=== PATIENT | male | born 1935 | race Caucasian/White ===

== ENCOUNTER 2024-09-18 15:10 | Inpatient (IN) | payer MEDICARE, OTHER, SELFPAY ==
[2024-09-18] VITALS (10 sets, daily range): BP systolic 100–142; BP diastolic 55–92; BMI 31.3; BMI 31.7
--- NOTE | 2024-09-18 12:51 | ED.GENMED ---
History of Present Illness
General
Chief Complaint: Chest Pain
Source: patient
Exam Limitations: none
Time Seen by Provider: 09/18/24 12:49
Nursing documentation reviewed up to this point in time: agreed with
History of Present Illness
History of Present Illness:
89-year-old male presents to the emergency department complaining of chest pain and shortness of breath for a week.
Past History
Past History
ED Past Medical History: CAD, HTN and Valvular disease
ED Past Surgical History: Cardiac (Prior to catheterization, coronary bypass, valve repair) and Other (Inguinal hernia)
Social History
Tobacco: Non-smoker
Alcohol: None
Drug: None
Personal:
Living: with family
Review of Systems
Review of Systems
Allergies reviewed?: Yes
All Other Systems: Not applicable
Constitutional: Reports no symptoms
EENT: Reports no symptoms
Respiratory: Reports trouble breathing
Cardiac: Reports chest pain
ABD/GI: Reports no symptoms
: Reports no symptoms
Musculoskeletal: Reports no symptoms
Skin: Reports no symptoms
Neurological: Reports no symptoms
Endocrine: Reports no symptoms
Hematologic/Lymphatic: Reports no symptoms
Psychiatric: Reports no symptoms
Phy Exam
Physical Exam
Physical Exam:
Physical Exam
General: no apparent distress, not acutely ill
Neck: supple. no meningeal signs. normal posterior pharynx
Heart: s1/s2 regular rate and rhythm, no murmur. equal radial
pulses. midline sternotomy scar
HEENT: Pupils equal round reactive to light, EOMI
Lungs: no acute respiratory distress. clear bilaterally
Abdomen: normal bowel sounds. not tender. no CVAT
Neuro: alert and oriented. no focal neurological deficits cranial nerves II through XII intact
Skin: no rash
Psychiatric: well kept. interactive and cooperative
Extremities: Bilateral tibial edema. no calf tenderness. negative homans. good distal pulses
Scores
Heart Failure Risk
Heart Failure Risk Score: Yes
History of Stroke or TIA: No
History of intubation for respiratory distress: No
Heart rate on ED arrival >/= 110: No
SaO2 <90% on arrival on room air: No
HR >/=110 during 3min walk test (or too ill to perform test): No
ECG has acute ischemic changes: No
Urea >/=12mmol/L (BUN 33.6mg/dL): No
Serum CO2>/=35mmol/L: No
Troponin I or T elevated to AL Level (0.4mg/dL): Yes
NT-proBNP >/=5,000ng/L (5,000pg/ml): Yes
HF Risk Score: 3
Admission Status: HIGH RISK 15.9% Consider SNF treatment or admission to hospital
Heart Score for Chest Pain Patients
STEMI patient?: No
History: Moderately Suspicious
ECG: Nonspecific Repolarization
Age: >/= 65 years
Risk Factors: >/= 3 Risk Factors or History of CAD
Troponin: >/= 3 x Normal Limit
Heart Score for Chest Pain Patients: 8
Heart Score Risk: 72.7 % MACE over next 6 weeks
Course
Orders/Labs/Results
Orders:
Orders
09/18/24 12:25
Electrocardiogram (*1) Urgent
Reason for Study: Chest Pain
EKG- Treatment ONCE
09/18/24 13:03
CR Chest - 2 Views Urgent
Comment:
Reason For Exam: shortness
09/18/24 13:05
Basic Metabolic Panel Urgent
Complete Blood Count/With Diff Urgent
NT-proBNP Urgent
Troponin I Urgent
09/18/24 13:30
CMP [Comprehensive Metabolic Panel] Urgent
09/18/24 13:57
Aspirin Chewable [Low Strength Aspirin] 324 mg PO NOW STA
Furosemide [Lasix] 40 mg IV ONCE ONE
09/18/24 13:58
Heparin 4,000 units IV NOW STA
09/18/24 13:[address] Non Medication Order As Directed
Physician Order: PTT 6 hours after initial start of Heparin infusion
09/18/24 14:00
Heparin 42668 Units/250 ml 25,000 units in 250 ml IV PER PROTOCOL
Weight to be used for heparin protocol in kilograms (kg):: 87.997
Protocol:: Cardiac Tx/Acute Coronary
PTT Goal Range to be used:: PTT 73 to 111 seconds
Order type:: Initial
INITIAL Infusion Dose (UNITS/KG/hr) & then follow protocol:: 12 units/kg/hr
Infusion Dose in UNITS/hr & then follow protocol (UNITS/hr):: 1,000
INFUSION RATE in mL/hr & then follow protocol (mL/hr):: 10
PTT less than or equal to 64 seconds:: Increase rate by 200 units/hr (+ 2 mL/hr)
PTT 64.1 to 72.9 seconds:: Increase rate by 100 units/hr (+ 1 mL/hr)
PTT 73 to 111 seconds:: Target Range. No change in rate.
PTT 111.1 to 130.9 seconds:: Decrease rate by 100 units/hr (- 1 mL/hr)
PTT 131 to 199.9 seconds:: HOLD for 1 hr. Then decrease rate by 200 units/hr (- 2 mL/hr)
PTT greater than or equal to 200 seconds:: HOLD for 2 hrs & Notify Provider. Then decrease by 200 units/hr (-
2 mL/hr)
Lab follow-up:: Each change, PTT q6h until 2 consecutive are therapeutic. Then PTT
daily.
09/18/24 14:03
PT/INR [Prothrombin Time] Urgent
PTT Urgent
09/18/24 14:49
Admit/Transfer Patient As Directed
Co-Sign Provider:
Level of Care: Inpatient admission
Assign to:: IVU
Physician / Group: Ananth Acevedo
Diagnosis: NSTEMI, HFpEF
Reason for Hospitalization: NSTEMI, HFpEF
Expected length of stay greater than two midnights?: Yes
ELOS- Estimated Length of Stay in days: 3
I certify the patient meets the requirements for IP care: Yes
09/18/24 14:50
PRN Pain Medication Management As Directed
May give lesser potent ordered pain med per pt: Yes
preference::
Protocol:: Medication orders for pain may be administered in a
manner that supports deferring to patient preference
when the pt is:
- Requesting an ordered lesser potent pain medication.
Least to most potent pain medications are defined
as: acetaminophen < NSAID < tramadol < opioids
(morphine, oxycodone, hydromorphone).
- Requesting a lesser dose of the same medication IF
ORDERED.
- Requesting a less intrusive route of administration
if both routes are prescribed by the provider (PO <
IV).
09/18/24 14:51
Code Status As Directed
Resuscitation Status: Full Code
09/18/24 20:30
PTT Urgent
Abnormal Lab Results
09/18/24 09/18/24
13:05 13:30
RBC 4.03 L 10^6/uL
(4.70-6.10)
Hgb 12.6 L g/dL
(13.0-18.0)
Hct 36.2 L %
(39.0-52.0)
MCH 31.3 H pg
(27.0-31.0)
Absolute Lymphs (auto) 0.4 L 10^3/uL
(1.2-3.4)
Absolute Monos (auto) 0.9 H 10^3/uL
(0.1-0.6)
Neutrophils % 78.5 H %
(42.2-75.2)
Lymphocytes % 6.0 L %
(20.5-51.1)
Monocytes % 13.7 H %
(1.7-9.3)
Sodium 132 L mmol/L 132 L mmol/L
(135-145) (135-145)
BUN 30 H mg/dl 29 H mg/dl
(9-20) (9-20)
Glucose 142 H mg/dl 133 H mg/dl
(70-99) (70-99)
Total Bilirubin 1.6 H mg/dl
(0.2-1.3)
AST 114 H U/L
(17-59)
Troponin I 8.570 H* ng/ml
Total Protein 6.0 L g/dl
(6.3-8.2)
09/18/24 13:05
09/18/24 13:30
Vital Signs
Initial and Last Documented VS:
Initial Vital Signs
Temp Pulse Resp BP Pulse Ox
97.4 F 96 16 122/60 97
09/18/24 12:33 09/18/24 12:33 09/18/24 12:33 09/18/24 12:33 09/18/24 12:33
Last Documented Vital Signs
Temp Pulse Resp BP Pulse Ox
97.8 F 88 20 121/55 94
09/18/24 13:07 09/18/24 15:00 09/18/24 15:00 09/18/24 15:00 09/18/24 15:00
MDM/Problems Addressed
Differential Diagnosis Includes:
ACS, PE, CHF
MDM/Problems Addressed:
89-year-old male with CHF and NSTEMI. Admit to hospitalist. IV heparin and IV Lasix and aspirin given. Discussed with Dr. Chang who will see patient.
Chronic conditions affecting care: CAD and Cardiomyopathy
Acute Exacerbation and/or Progression of Chronic Illness: CAD and Cardiomyopathy
*Radiology
Radiology exam reviewed: preliminary read by ED provider (Chest x-ray shows cardiomegaly, pulmonary edema)
*Pulse Oximetry
Patient hypoxic: no
*EKG
Interpreted by ED Provider?: Yes
EKG Intrepretation Date: 09/18/24
EKG Intrepretation Time: 12:32
Interpretation: abnormal
Comparison EKG: changes noted
Heart Rate: 95
Rate: normal
Rhythm: sinus
[place]: left axis deviation
Interval: first degree heart block
QRS Pattern: normal QRS
Ischemia: no ischemia
*Flatbed Owner Operator Interpretation
Rate: normal
Interpretation: normal
Heart Rate: 94
Rhythm: sinus
*Critical Care Note
Total Time (30-74mins, 75-104mins- exclusive of procedures): 35
comment:
Critical care statement: A total of 35 minutes of critical care time was provided for this patient. This includes management of unstable vital signs, evaluation of the patient at bedside, reviewing the patient's pertinent medical records, discussion
with consultants, review of old EKGs and review of pertinent medical records. This time with separate from time utilized to perform the aforementioned documented procedures
Patient Management
Social determinants of health affecting care: Living situation
Discussion with other providers: Hospitalist and Machining Supervisor (Cardiology)
Escalation/DeEscalation of care consider admission/obs:
Admit indicated
ED Attending Note
-
Portions of this chart may have been created with voice recognition software.� Occasional wrong word or��sound alike� substitutions may have occurred due to the inherent limitations of voice recognition software.
Discharge Plan
Departure
Patient Disposition: Admit
Date of Disposition: 09/18/24
Time of Disposition: 13:55
Admit to: IVU
Presentation/result/management discussed w/ accepting MD/DO: Hospitalist
Patient with high blood pressure during this ER visit?: No
Condition: Fair
Discharge Problem:
Acute non-ST elevation myocardial infarction (NSTEMI), Acute exacerbation of CHF (congestive heart failure)
Interventions
Interventions:
*Risk Screen - Suicide Last Done: 09/18/24 13:07
*General Assessment Last Done: 09/18/24 13:07
*Neglect/Abuse Screening Last Done: 09/18/24 13:07
*ED- Fall Risk Assessment Last Done: 09/18/24 13:07
*ED COVID-19 Vaccine History Last Done: 09/18/24 13:07
ED- Cardiac Assessment Last Done: 09/18/24 13:07
[2024-09-18 13:14] LABS: % Basophils 0.5 % (0-2); % Eosinophils 0.8 % (0-6); % Immature Granulocytes 0.5 % (0-0.5); % Monocytes 13.7 % (1.7-9.3); % Neutrophils 78.5 % (42.2-75.2); Absolute Eosinophils 0.1 10^3/uL (0-0.7); Absolute Lymphocytes 0.4 10^3/uL (1.2-3.4); Absolute Monocytes 0.9 10^3/uL (0.1-0.6); Hematocrit 36.2 % (39.0-52.0); Hemoglobin 12.6 g/dL (13.0-18.0); Mean Corp Hgb Conc. 34.8 g/dL (33.0-37.0); Mean Corpuscular Hgb 31.3 pg (27.0-31.0); Mean Corpuscular Volume 89.8 fL (80.0-94.0); Mean Platelet Volume 9.7 fL (7.4-10.4); Nucleated Red Blood Cells % 0 % (-); Platelet Count 168 10^3/uL (130-400); Red Blood Cell Count 4.03 10^6/uL (4.70-6.10); Red Cell Dist. Width 13.5 % (11.5-14.5); White Blood Cell Count 6.4 10^3/uL (4.8-10.8)
[2024-09-18 13:31] LABS: Blood Urea Nitrogen 30 mg/dl (9-20); Calcium 9.8 mg/dl (8.4-10.2); Carbon Dioxide 29 mmol/L (22-30); Chloride 99 mmol/L (98-107); Estimated Creatinine Clearance 47 ml/min; Glucose 142 mg/dl (70-99); Sodium 132 mmol/L (135-145); eGFR > 60.00
[2024-09-18 13:42] LABS: NT-proBNP 19400 pg/ml
[2024-09-18 13:51] LABS: ALT (SGPT) 27 U/L (0-50); AST (SGOT) 114 U/L (17-59); Albumin 3.5 g/dl (3.5-5.0); Alkaline Phosphatase 54 U/L (38-126); Blood Urea Nitrogen 29 mg/dl (9-20); Calcium 9.6 mg/dl (8.4-10.2); Carbon Dioxide 30 mmol/L (22-30); Chloride 99 mmol/L (98-107); Estimated Creatinine Clearance 47 ml/min; Glucose 133 mg/dl (70-99); Sodium 132 mmol/L (135-145); Total Bilirubin 1.6 mg/dl (0.2-1.3); eGFR > 60.00
--- NOTE | 2024-09-18 14:12 | HPS.HSE ---
Family Physician
-
Family Physician: Mika Mcconnell MD
Chief Complaint
-
chest pain
History of Present Illness
Patient is a 89-year-old male with past medical history significant for essential hypertension, dyslipidemia, non-rheumatic mitral valve stenosis, CAD s/p CABG and HFpEF who presented to [facility] ED for evaluation of chest pain associated
with shortness of breath for the past week. Patient reports that chest pain radiated a little to left arm. Both shortness of breath and chest pain were present at rest and exertional. He rates his pain on a scale 1 to 10 at a 3 currently and no
worse than a 5 out of 10. Patient denies any recent illness, dizziness, fever, chills, cough, nausea, vomiting, constipation, diarrhea or urinary symptoms. Patient does report a recent hospitalization at [facility] for CHF exacerbation and
Lasix initiated with a 20 pound weight loss.
Medical History
Past Medical History
Past Medical History: Reports Other
Additional Past Medical History:
essential hypertension
dyslipidemia
non-rheumatic mitral valve stenosis
CAD
HFpEF
hypothyroidism
depression/anxiety
Past Surgical History: Reports Other
Additional Past Surgical History:
CABG
Cardiac cath
aortic valve replacement
Prostatectomy-Green light(2008)
Mohs Surgery for Skin Cancer(2009)
Social History
Tobacco: Non-smoker
Alcohol: Occasional
Drug: None
Personal:
Living: With Family (shelter community in independent living )
Employment: Retired
Family History
Family History: Not pertinent
Allergies / Home Medications
Allergies reflects when Allergies were last updated in [facility].
Home Medications with original date entered in [facility]
Allergy/Medication List:
Allergies
Allergy/AdvReac Type Severity Reaction Status Date / Time
No Known Allergies Allergy Unverified 11/01/08 13:28
Home Medications
alprazolam 0.5 mg tablet (Xanax) 0.5 mg PO HS 09/18/24
carvedilol 6.25 mg tablet 6.25 mg PO BID 09/18/24
dapagliflozin propanediol 10 mg tablet (Farxiga) 10 mg PO DAILY 09/18/24
docusate sodium 100 mg capsule (Colace) 100 mg PO BID 09/18/24
furosemide 40 mg tablet (Lasix) 40 mg PO DAILY 09/18/24
levothyroxine 88 mcg tablet 88 mcg PO DAILY 09/18/24
sacubitril 24 mg-valsartan 26 mg tablet (Entresto) 1 tab PO BID 09/18/24
sennosides 8.6 mg tablet (Senokot) 8.6 mg PO DAILY 09/18/24
Review of Systems
-
History Source: Patient
Respiratory: Reports Trouble Breathing (shortness of breath at rest and exertional )
Cardiac: Reports Chest Pain (at rest and exertional )
Physical Exam
Vital Signs
Vital Signs
Temp Pulse Resp BP Pulse Ox
97.8 F 84 16 119/59 97
09/18/24 13:07 09/18/24 13:07 09/18/24 13:07 09/18/24 13:07 09/18/24 13:07
Physical Exam
General: Well Developed, Well Nourished, No Apparent Distress, Conversant and Obese
HEENT: NormoCephalic, Moist mucous membranes, Atraumatic, [place] Conjunctivae, Nose Appears Normal and Ears Appear Normal
Respiratory: Clear
Cardiac: S1/S2 and Regular Rhythm; No Murmur
GI: Soft, Non Tender, Non Distended and Normal Bowel Sounds; No Organomegaly
Rectal: Deferred by Provider
Genito-urinary: Deferred by me
Musculoskeletal: No Clubbing, No Cyanosis, Edema, Left Lower Extremity and Edema, Right Lower Extremity
Skin: No Rash
Neuro: Awake, Alert, AO x 3 and Nonfocal/grossly intact
Psych: Calm and Intact Judgment/Insight
Laboratory Results
-
09/18/24 13:05
09/18/24 13:30
Laboratory Results
Total Bilirubin 1.6 mg/dl (0.2-1.3) H 09/18/24 13:30
AST 114 U/L (17-59) H 09/18/24 13:30
ALT 27 U/L (0-50) 09/18/24 13:30
Alkaline Phosphatase 54 U/L (38-126) 09/18/24 13:30
Troponin I 8.570 ng/ml H* 09/18/24 13:05
Data Reviewed
-
Medical Tests (Nuc Med, Echo, EKG etc): Report Reviewed by me (EKG: SINUS RHYTHM WITH 1ST DEGREE A-V BLOCK LEFT AXIS DEVIATION NON-SPECIFIC INTRA-VENTRICULAR CONDUCTION DELAY MINIMAL VOLTAGE CRITERIA FOR LVH, MAY BE NORMAL VARIANT ( [place]on product
) MARKED ST ABNORMALITY, POSSIBLE LATERAL SUBENDOCARDIAL INJURY)
Lab Data: Labs Reviewed by me (Trop 8.570, pro-BNP 55684)
Impression/Plan
-
IMPRESSION/PLAN:
#NSTEMI
Trop 8.570
EKG: SINUS RHYTHM WITH 1ST DEGREE A-V BLOCK
LEFT AXIS DEVIATION
NON-SPECIFIC INTRA-VENTRICULAR CONDUCTION DELAY
MINIMAL VOLTAGE CRITERIA FOR LVH, MAY BE NORMAL VARIANT ( [place] product )
MARKED ST ABNORMALITY, POSSIBLE LATERAL SUBENDOCARDIAL INJURY
- Admit to IVU
- Cardiology consult CBC
- Heparin gtt
- trend troponin to peak
#essential hypertension
- continue carvedilol and Entresto
#HFpEF
recent CHF exacerbation @ [facility] discharged 2 weeks ago
pro-BNP [id number]
ECHO (06/05/2023): Normal biventricular size and systolic function without regional wall motion abnormality. Estimated LVEF 65-70%.
Dense mitral annular calcification. Mild/moderate mitral stenosis with a mean gradient of 6 mmHg.
Bioprosthetic aortic valve replacement. The peak/mean gradients across the valve are 14/7 mmHg.
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
- continue carvedilol, Farxiga, furosemide and Entresto
- request [facility] records
#depression/anxiety
- continue alprazolam
#hyperlipidemia
- continue levothyroxine
#dyslipidemia
#CAD
s/p CABG
#non-rheumatic mitral valve stenosis
s/p aortic valve replacement
Code status: full code
DVT prophylaxis: heparin gtt
[2024-09-18] MEDS: LASIX 40 MG IV (14:19)
[2024-09-18] MEDS: LOW STRENGTH ASPIRIN 324 MG PO (14:20)
--- NOTE | 2024-09-18 14:20 | W.PN.UPDATE ---
Update Note
Progress Note Update
This note serves as an addendum to the H&P by supervisor dock MARSHALL Sandra May
HPI
89M HX chr HFpEF on GDMT, LVEF 65-70, valvular heart dz( Mild/moderate mitral stenosis, Bioprosthetic AoVR) seen at [facility];
- chest pain and shortness of breath for a week
PHX; see above
Reviewed VS:
VS
05/29/08
07:46 09/18/24
13:06 09/18/24
13:07
Temp 97.8 F
Pulse 84
Resp Rate 16
Blood pressure 119/59
SaO2 97
Oxygen Mode of Delivery Room air
Actual Weight 88.405 kg 87.997 kg
Labs
PE
Gen:Obese
HEENT: anicteric
Neck:prominent EJD
Lungs: Symmetric AE
Cor: well healed sternal scan
Abdomen: obese
CLAM DREDGER: AAO3
MS: B/L Rosey suspected edema but under the stocking
Psych: appropriate
07/02/09 09/18/24 09/18/24
12:20 13:05 13:30
WBC 4.9 6.4
Hgb 14.5 12.6 L
Plt Count 152 168
Sodium 132 L
Potassium 4.0
BUN 29 H
Creatinine 1.1
eGFR > 60.00
Glucose 133 H
Total Bilirubin 1.6 H
AST 114 H
Troponin I 8.570 H*
Fhu-Q-Ugkupkzihsr Pept [id number]
Total Protein 6.0 L
CXR pending final report
EKG
SINUS RHYTHM WITH 1ST DEGREE A-V BLOCK
LEFT AXIS DEVIATION
NON-SPECIFIC INTRA-VENTRICULAR CONDUCTION DELAY
MINIMAL VOLTAGE CRITERIA FOR LVH, MAY BE NORMAL VARIANT ( Levon product )
MARKED ST ABNORMALITY, POSSIBLE LATERAL SUBENDOCARDIAL INJURY
ABNORMAL ECG
WHEN COMPARED WITH ECG OF 12-JUN-2008 13:26,
MS INTERVAL HAS INCREASED
QUESTIONABLE CHANGE IN QRS DURATION
06/05/23 TTE
Normal biventricular size and systolic function without regional wall motion abnormality.
Estimated LVEF 65-70%.
Dense mitral annular calcification.
Mild/moderate mitral stenosis with a mean gradient of 6 mmHg.
Bioprosthetic aortic valve replacement. The peak/mean gradients across the valve are 14/7 mmHg.
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
- Compared to 03/05/22: no significant change.
ASSESSMENT & PLAN
NSTEMI pw CP , significant POS TPNI of 8.57
NOS EKG for acute ischemia
HX CAD/CABG
- Heparin gtt
- Trend TPNI till peak
- EKG
- CBC card consulted
AE HFpEF with LVEF 65-70
- s/p IV Lasix 40 once at ER
- daily IV Lasix and trend Wt and daily BMP
- on PROGRESS MAN GDMT ( Frusemide+ Carvedilol 6.25mg BID + Dapagliflozin 10 daily + Entresto 1 tab BID )
HX Valvular heart Dz
Mild/moderate mitral stenosis
Bioprosthetic aortic valve replacement.
Hypothyroid
- on LT4 88mcg daily
Xanax dependent Insomnia
DVT Px: Heparin gtt
Full code
IVU
[2024-09-18] MEDS: HEPARIN 4000 UNITS IV (14:21)
[2024-09-18 14:22] LABS: INR 0.99; PT 13.4 Sec (11.4-14.6)
[2024-09-18] MEDS: HEPARIN 25000 UNITS/250 ML IV (14:22)
[2024-09-18 14:23] LABS: APTT 24.8 Sec (23.4-35.0)
--- NOTE | 2024-09-18 14:36 | EDRN ---
hospitalist currently at the pts bedside
--- NOTE | 2024-09-18 16:41 | EDRN ---
cardiology currently at the pts bedside
[2024-09-18] MEDS: NITRO-BID 1 INCH TOPICAL (16:53)
--- NOTE | 2024-09-18 16:59 | EDRN ---
this RN called the receiving IVU nurse Bettina WRIGHT and gave verbal report, paper report was also tubed up to the receiving unit
--- NOTE | 2024-09-18 17:39 | CON.CAR ---
Medical History
-
History of Present Illness:
Card: MD Enedina, PhD; PCP �Eva Rodríguez MD�
Mr. Mujica is a pleasant 89 yo man with known CAD, s/p remote CABG, s/p bioAVR at time of CABG, HTN, calcific mild/mod MS who presents with 2 week of progressive angina progressing to NSTEMI. Progressive new ZHENG over last 2 weeks as well.
Past Medical History
Past Medical History: Arrhythmias (first degree AV block), CAD (Remote CABG 2007), HTN, Hypercholesterolemia, Hypothyroidism, Valvular Disease (mild/mod calcific MS, Bio AVR at time of CABG), Psychiatric (depression) and Other (lymphedema)
Past Surgical History: Cardiac (CABG/bioAVR 2007), Urological (Greenlight prostate) and Other (skin cancer resection)
Social History
Tobacco: Non-Smoker
Family History
Family History: Other (no premature CAD in first degree relatives)
Allergies / Home Medications
Allergy/AdvReac Type Severity Reaction Status Date / Time
No Known Allergies Allergy Unverified 11/01/08 13:28
�Medication �Instructions �Recorded �Confirmed �Type
alprazolam 0.5 mg tablet (Xanax) 0.5 mg PO HS 09/18/24 09/18/24 History
carvedilol 6.25 mg tablet 6.25 mg PO BID 09/18/24 09/18/24 History
dapagliflozin propanediol 10 mg 10 mg PO DAILY 09/18/24 09/18/24 History
tablet (Farxiga)
docusate sodium 100 mg capsule 100 mg PO BID 09/18/24 09/18/24 History
(Colace)
furosemide 40 mg tablet (Lasix) 40 mg PO DAILY 09/18/24 09/18/24 History
levothyroxine 88 mcg tablet 88 mcg PO DAILY 09/18/24 09/18/24 History
sacubitril 24 mg-valsartan 26 mg 1 tab PO BID 09/18/24 09/18/24 History
tablet (Entresto)
sennosides 8.6 mg tablet (Senokot) 8.6 mg PO DAILY 09/18/24 09/18/24 History
Review of Systems
-
History Source: Patient and Family
All other systems: Negative unless noted
Respiratory: Trouble Breathing
Cardiac: Chest Pain
Physical Exam
Vital Signs
Temp Pulse Resp BP Pulse Ox
97.8 F 96 20 130/61 96
09/18/24 13:07 09/18/24 17:00 09/18/24 17:00 09/18/24 17:00 09/18/24 17:00
Lab Results
09/18/24 13:05
09/18/24 13:30
Troponin I 8.570 ng/ml H* 09/18/24 13:05
Xoy-S-Uwvzirmeuuk Pept 07592 pg/ml 09/18/24 13:05
Physical Exam
General: Well Developed and Well Nourished
HEENT: Normocephalic and Anicteric
Respiratory: Clear
Cardiac: S1/S2, Regular Rhythm and Murmur (soft RAJAT)
GI: Soft and Non Tender
Musculoskeletal: No Clubbing, No Cyanosis and Edema (1+ bilat edema)
Skin: Warm and Dry
Neuro: Awake and Alert
Psych: Calm
Impression / Plan
-
Card: MD Enedina, PhD; PCP �Eva Rodríguez MD�
ACS with NSTEMI
- Pt prefers invasive strategy with cath/PCI
- Seems reasonable, prior abnl stress, progressive CP last 2 weeks with new HF and NSTEMI
- Echo
- Pt aware of elevated risk given age/comorbid conditions
Acute on chronic HFpEF
- IV lasix
- Update echo
- Right pleural effusion
- New ZHENG
- pBNP very elevated with normal Cr
- Education
- Na+/Fluid restrict
- Advance GDMT over time => add MRA once renal function stable from cath/possible PCI
Known CAD, CABG 2007
BioAVR at time of CABG 2007
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
HTN
Mixed hyperlipidemia
Lymphedema
Subjective:
Feels oK now, at times CP => adding topical nitrates to the IV heparin
Data Reviewed
-
EKG: Tracing Personally Visualized and interpreted (NSR 95 bpm, 1st degree AVB, LAFB, IVCD LVH voltage, lateral ST changes c/w ischemia could be from LVH. little change from prior)
Radiology: Image Personally Visualized and interpreted (No obvious heart failure, blunting R diaphragm)
Ultrasound: Report Reviewed by me (Echo (06/05/23): EF 65-70%, mild cLVH, Stage I DD, bio AVR with mean grad 7, no AR, mild/moderate MS with mean MV gradient 6, nl RV. trace TR, PASP 29, Asc Ao 3.7cm)
Medical Tests (Nuc Med, Echo etc): Report Reviewed by me (Lexiscan nuclear stress (09/19/20): no CP or EKG changes, mild ischemia in basal to mid anterolateral segments, EF 58%, moderate risk)
[2024-09-18] MEDS: ENTRESTO 24 MG/26 MG 1 TAB PO (19:56)
[2024-09-18] MEDS: COREG 6.25 MG PO (19:57)
[2024-09-18] MEDS: COLACE 100 MG PO (19:57)
[2024-09-18 20:50] LABS: APTT 85.1 Sec (23.4-35.0)
[2024-09-18] MEDS: XANAX 0.5 MG PO (22:31)
[2024-09-19] VITALS (14 sets, daily range): BP systolic 113–154; BP diastolic 53–83; BMI 31.2
[2024-09-19 03:01] LABS: Hemoglobin 11.3 g/dL (13.0-18.0); Mean Corp Hgb Conc. 35.3 g/dL (33.0-37.0); Mean Corpuscular Hgb 31.4 pg (27.0-31.0); Mean Corpuscular Volume 88.9 fL (80.0-94.0); Mean Platelet Volume 9.9 fL (7.4-10.4); Platelet Count 144 10^3/uL (130-400); Red Cell Dist. Width 13.5 % (11.5-14.5); White Blood Cell Count 5.8 10^3/uL (4.8-10.8)
[2024-09-19 03:34] LABS: ALT (SGPT) 25 U/L (0-50); AST (SGOT) 109 U/L (17-59); Albumin 3.2 g/dl (3.5-5.0); Alkaline Phosphatase 44 U/L (38-126); Blood Urea Nitrogen 27 mg/dl (9-20); Calcium 8.6 mg/dl (8.4-10.2); Carbon Dioxide 24 mmol/L (22-30); Chloride 105 mmol/L (98-107); Estimated Creatinine Clearance 52 ml/min; Glucose 87 mg/dl (70-99); HDL Cholesterol 57 mg/dl; LDL Cholesterol, Calculated 99 mg/dl; Potassium 3.4 mmol/L (3.5-5.1); Sodium 137 mmol/L (135-145); Total Bilirubin 1.4 mg/dl (0.2-1.3); Total Cholesterol 167 mg/dl (50-199); Total Protein 5.2 g/dl (6.3-8.2); Triglyceride 59 mg/dl (10-149); Very Low Density Lipoprotein 11 mg/dl (0-30); eGFR > 60.00
--- NOTE | 2024-09-19 04:57 | PTCARENOTE ---
Pt NSR on monitor. Denies chest pain. Pt had multiple episodes of small watery stool. Pt ambulates with x 1 assist and RW. Heparin gtt per protocol. NPO for cath
--- NOTE | 2024-09-19 06:00 | W.PN.HOSP.TC ---
Today's Communication/Plan
-
see a/p
Assessment / Plan
Assessment / Plan
Physical Exam
General: no acute distress. Appears comfortable at time of evaluation
HEENT: NormoCephalic, Moist mucous membranes, Atraumatic
Respiratory: Clear to auscultation b/l
Cardiac: S1/S2 and Regular Rhythm; No Murmur
GI: Soft, Non Tender, Non Distended and Normal Bowel Sounds
Musculoskeletal: No Clubbing, No Cyanosis, No Edema
Neuro: AOx3 conversant coherent
Psych: Calm and Intact Judgment/Insight
89M HFpEF CABG bioAVR mild/mod MS Hypothyroidism p/w chest pain admitted and treated for NSTEMI
#NSTEMI
Trop trended to peak 11.8 since trended down
EKG reviewed
- IVU admit
- Cardiology consult CBC appreciated
- treated w/ Heparin gtt prior to cath and stents placed
- ASA plavix as per Cardio
#essential hypertension
- continue carvedilol and Entresto
#HFpEF
recent CHF exacerbation @ [facility] discharged 2 weeks ago
pro-BNP 15460
prior to cath ECHO appreciated EF 45% MR progressed to moderate new moderate AR increased pulm htn
continue carvedilol, Farxiga, furosemide and Entresto
#depression/anxiety
- continue alprazolam
#hyperlipidemia
- continue levothyroxine
#dyslipidemia
#CAD
s/p CABG
#non-rheumatic mitral valve stenosis
s/p aortic valve replacement
Code status: full code
DVT prophylaxis: heparin gtt completed, encourage progressive ambulation
I spent a total of 50 minutes with the patient or on the floor. More than 50% of this time involved counseling and coordination of care.
Anticipated Discharge: 24 - 48 hours
Subjective/Interval History
-
Date of Service: September 19, 2024
seen and examined at bedside post cath. Overall reports feeling well. Chest pain free.
Objective Data
-
Labs:
Laboratory Results
09/18/24 09/19/24
20:30 02:45
WBC 5.8
Hgb 11.3 L
Hct 32.0 L
Plt Count 144
APTT 85.1 H 78.0 H
Sodium 137
Potassium 3.4 L
Chloride 105
Carbon Dioxide 24
BUN 27 H
Creatinine 1.0
Glucose 87
Calcium 8.6
Total Bilirubin 1.4 H
AST 109 H
ALT 25
Alkaline Phosphatase 44
Vital Signs:
Vital Signs
Temp Pulse Resp BP Pulse Ox
98.4 F 78 19 113/56 94
09/19/24 02:50 09/19/24 05:15 09/19/24 02:50 09/19/24 02:50 09/19/24 02:50
I&O
09/17/24 09/18/24 09/19/24
06:59 06:59 06:59
Intake Total 100 / 100
Balance 100 / 100
[2024-09-19] MEDS: SYNTHROID 88 MCG PO (06:15)
[2024-09-19] MEDS: LOW STRENGTH ASPIRIN 81 MG PO (09:10)
[2024-09-19] MEDS: COREG 6.25 MG PO ×2 (09:10→21:37)
[2024-09-19] MEDS: FARXIGA 10 MG PO (09:11)
[2024-09-19] MEDS: ENTRESTO 24 MG/26 MG 1 TAB PO ×2 (09:11→21:38)
[2024-09-19 09:49] LABS: Phosphorus 2.8 mg/dl (2.5-4.5)
[2024-09-19] MEDS: KCL 40 MEQ PO (10:05)
[2024-09-19 10:43] LABS: Glycohemoglobin (HgbA1c) 5.2 % (4.0-5.6)
[2024-09-19 13:05] LABS: ACT-LR - POC 255 Seconds (116-155)
--- NOTE | 2024-09-19 13:08 | CM ---
spoke to pt in room, he is prev indep, lives with his in a 1 story home with 1 step to enter. he denies any dc planning needs. he has a walker he uses. plan is for dc to home when medically stable.
[2024-09-19] MEDS: LASIX 40 MG IV (14:14)
[2024-09-19] MEDS: COLACE PO (14:26)
[2024-09-19] MEDS: SENOKOT PO (14:27)
--- NOTE | 2024-09-19 14:38 | ITS.CL.PN ---
[employer] Manager - Procedure Note
Procedure
Procedure Note:
CARDIAC CATHETERIZATION REPORT
Date of Procedure: 09/19/2024
Referring: Dr. Lloyd Chang MD
Indication: NSTEMI
PROCEDURE(S)
1. left heart catheterization
2. coronary angiography
3. bypass graft angiography
4. PCI with KISHORE to SVG-RCA
ACCESS: 6F distal left radial artery (closure: radial band)
CATHETERS
1. 6F UTE
2. 6F JL4
3. 6F JR4
4. 6F UTE (best for SVG-RCA)
5. 6F AL1 (best for SVG-OM)
6. 6F UTE guide
MODERATE SEDATION: 60 minutes of moderate sedation was utilized. An independent medical cost consultant was present to assist with and help manage the patient's level of consciousness and physiologic status.
HEMODYNAMIC DATA
LV 120/14 (EDP 30) mmHg
AO 117/56 (mean 82) mmHg
CORONARY ANGIOGRAPHY
Dominance: right
LM: large caliber vessel with diffuse mild disease
LAD: large vessel giving rise to a moderate caliber D1, moderate caliber D2, and wrapping around the apex. The LAD is totally occluded after D1. D1 fills with TIMI2 flow through the severely disease proximal LAD. The mid-distal LAD including D2
fills via the patent ROWE. There is moderate proximal disease in the D2 similar to 2008 angiography.
LCx: large vessel giving rise to a moderate caliber OM1, small OM2, and large branching OM3. There is a long segment of moderate to severe disease in the mid portion of the OM3 which is a 2.0 mm vessel. There is otherwise mild disease.
RCA: large vessel giving rise to a large RPDA and multiple RPL branches. The vessel is totally occluded in the mid portion with the RPDA/RPLs filled via the vein graft.
BYPASS GRAFT ANGIOGRAPHY:
ROWE-LAD: the ROWE is taken as a pedicle and forms an anastomosis with the mid-LAD providing antegrade flow to the apex and retrograde flow back to the proximal vessel with filling of the D2.
SVG-RPDA: forms an anastomosis with the distal RCA. There is a 50% proximal stenosis and serial 99% and 70% distal stenoses. There is TIMI2 flow in the runoff RPDA and RPL branches.
SVG-OM1: 100% occluded proximally
PCI with KISHORE to SVG-RCA
Heparin was administered to achieve ACT greater than 300. The SVG-RCA was engaged with a 6 Kinyarwanda Multipurpose guide catheter. A Runthrough wire would not cross the lesion. A Whisper wire was able to cross the lesion and was placed in the distal RPL
branch. Initial lesion preparation of the distal stenosis was performed with a 2.0 semicompliant balloon. Stenting was then performed with overlapping 3.5x18 and 3.5x38 mm Xience Skypoint KISHORE deployed at 14 jose with full expansion. Intracoronary
nitroglycerin was given and angiography demonstrated TIMI3 flow distally. There was noted to be significant pressure dampening with the MPA guide intubated in the proximal lesion suggesting its severity. Thus, this lesion was directly stented with a
4.0x18 mm Xience Skypoint KISHORE followed by post-dilation with a 4.0x12 mm NC balloon to high pressure. Final angiographic result was excellent with TIMI3 flow and newly appreciated R-L collaterals to the D1. The wire and guide were removed and a TR
band placed. The patient was loaded with 600 mg Plavix.
RADIATION: dose 2439 mGy; DAP 202 Gy*cm2; fluoroscopy time 25.5 min
CONCLUSIONS
1. Coronary artery disease as described with patent ROWE-LAD, occluded SVG-OM, and 99% stenosed SVG-RCA.
2. Severely elevated LV filling pressure and no aortic stenosis
3. Successful PCI with DESx3 to SVG-RCA (overlapping 3.5x18 and 3.5x38 mm Xience Skypoint distally and 4.0x18 mm Xience Skypoint proximally)
RECOMMENDATIONS
1. DAPT with ASA/Plavix for 1 year
2. Post-cath fluids and monitoring of renal function
3. Echo in AM, GDMT titration indicated
4. Aggressive secondary prevention of coronary artery disease
5. If patient continues to have chest pain, could consider PCI to the chemehuevi OM3
Copy to: Dr. Fili Mcconnell MD, PhD (education trainer); Dr. Eva Rodríguez MD(PCP)
Signed: Lev Hall MD, PhD
[2024-09-19] MEDS: LIPITOR 40 MG PO (17:26)
--- NOTE | 2024-09-19 18:00 | PTCARENOTE ---
Pt received this am with no c/o of any pain or sob. Pt assisted oob to the BR multiple times with the walker to attempt to have a BM. Pt had 2 small soft BM's today. Pt returned post cath with Radial site band intact and no hematoma or bleeding.
[2024-09-19] MEDS: COLACE 100 MG PO (21:43)
[2024-09-19] MEDS: XANAX 0.5 MG PO (23:37)
[2024-09-20 02:40] VITALS: BP 117/58
[2024-09-20 02:58] VITALS: BMI 31.0
[2024-09-20 03:50] LABS: Hematocrit 34.8 % (39.0-52.0); Hemoglobin 12.1 g/dL (13.0-18.0); Mean Corp Hgb Conc. 34.8 g/dL (33.0-37.0); Mean Corpuscular Hgb 31.4 pg (27.0-31.0); Mean Corpuscular Volume 90.4 fL (80.0-94.0); Mean Platelet Volume 10.3 fL (7.4-10.4); Platelet Count 176 10^3/uL (130-400); Red Blood Cell Count 3.85 10^6/uL (4.70-6.10); Red Cell Dist. Width 13.6 % (11.5-14.5); White Blood Cell Count 7.7 10^3/uL (4.8-10.8)
[2024-09-20 03:55] LABS: ALT (SGPT) 30 U/L (0-50); AST (SGOT) 100 U/L (17-59); Alkaline Phosphatase 65 U/L (38-126); Blood Urea Nitrogen 33 mg/dl (9-20); Calcium 9.7 mg/dl (8.4-10.2); Carbon Dioxide 23 mmol/L (22-30); Chloride 101 mmol/L (98-107); Estimated Creatinine Clearance 47 ml/min; Glucose 103 mg/dl (70-99); Phosphorus 3.3 mg/dl (2.5-4.5); Potassium 4.3 mmol/L (3.5-5.1); Sodium 134 mmol/L (135-145); Total Bilirubin 1.7 mg/dl (0.2-1.3); Total Protein 6.4 g/dl (6.3-8.2); eGFR > 60.00
[2024-09-20] MEDS: SYNTHROID 88 MCG PO (06:45)
--- NOTE | 2024-09-20 07:18 | W.PN.HOSP.TC ---
Addendum entered and electronically signed by Grayson Allen MD 09/20/24 13:02:
Correction to the following
#hyperlipidemia
- continue levothyroxine
should read
#Hypothyroidism
- continue levothyroxine
Original Note:
Today's Communication/Plan
-
discharge
Assessment / Plan
Assessment / Plan
Physical Exam
General: no acute distress. Appears comfortable at time of evaluation
HEENT: NormoCephalic, Moist mucous membranes, Atraumatic
Respiratory: Clear to auscultation b/l
Cardiac: S1/S2 and Regular Rhythm; No Murmur
GI: Soft, Non Tender, Non Distended and Normal Bowel Sounds
Musculoskeletal: No Clubbing, No Cyanosis, No Edema
Neuro: AOx3 conversant coherent
Psych: Calm and Intact Judgment/Insight
89M HFpEF CABG bioAVR mild/mod MS Hypothyroidism p/w chest pain admitted and treated for NSTEMI
#NSTEMI
Trop trended to peak 11.8 since trended down
EKG reviewed
- IVU admit
- Cardiology consult CBC appreciated
- treated w/ Heparin gtt prior to cath and stents placed
- ASA plavix for at least 1 yr as per Cardio
#essential hypertension
- continue carvedilol and Entresto
#Acute on Chronic HFmrEF, previously HFpEF
recent CHF exacerbation @ [facility] discharged 2 weeks ago
pro-BNP 33471
prior to cath ECHO appreciated EF 45% MR progressed to moderate new moderate AR increased pulm htn
continue carvedilol, Farxiga, and Entresto
Lasix increased to 80 mg daily as per Cardio.
#depression/anxiety
- continue alprazolam
#hyperlipidemia
- continue levothyroxine
#dyslipidemia
#CAD
s/p CABG
#non-rheumatic mitral valve stenosis
s/p aortic valve replacement
Code status: full code
DVT prophylaxis: heparin gtt completed, encourage progressive ambulation
Medically stable for discharge home with outpatient follow up recommendations.
Total Time Preparing Discharge ___40____ minutes including examination of the patient, summary of the hospital stay, instructions for continuing care to all relevant caregivers; and preparation of discharge records, prescriptions, and referral
forms if necessary.
Anticipated Discharge: Today
Subjective/Interval History
-
Date of Service: September 20, 2024
Reports feeling well denies new acute issues at this time. Chest pain free. Eager to go home.
Objective Data
-
Labs:
Laboratory Results
09/20/24 09/20/24
03:06 06:00
WBC 7.7
Hgb 12.1 L
Hct 34.8 L
Plt Count 176 D
APTT Cancelled
Sodium 134 L
Potassium 4.3 D
Chloride 101
Carbon Dioxide 23
BUN 33 H
Creatinine 1.1
Glucose 103 H
Calcium 9.7
Total Bilirubin 1.7 H
AST 100 H
ALT 30
Alkaline Phosphatase 65
Vital Signs:
Vital Signs
Temp Pulse Resp BP Pulse Ox
98.3 F 87 18 117/58 95
09/20/24 02:41 09/20/24 05:30 09/20/24 02:41 09/20/24 02:40 09/20/24 02:41
I&O
09/19/24 09/20/24 09/21/24
06:59 06:59 06:59
Intake Total 100 / 100 150 / 150
Balance 100 / 100 150 / 150
[2024-09-20 08:09] VITALS: BP 118/56
[2024-09-20 09:31] LABS: ACT-LR - POC > 397 Seconds (116-155)
[2024-09-20 09:45] VITALS: BP 143/61
[2024-09-20] MEDS: ENTRESTO 24 MG/26 MG 1 TAB PO (09:50)
[2024-09-20] MEDS: COREG 6.25 MG PO (09:50)
[2024-09-20] MEDS: LASIX 40 MG IV (09:51)
[2024-09-20] MEDS: PLAVIX 75 MG PO (09:51)
[2024-09-20] MEDS: FARXIGA 10 MG PO (09:51)
[2024-09-20] MEDS: LOW STRENGTH ASPIRIN 81 MG PO (09:51)
[2024-09-20] MEDS: SENOKOT 8.6 MG PO (09:51)
[2024-09-20 09:54] VITALS: BP 143/61; PULSE 85; O2SAT 98
--- NOTE | 2024-09-20 11:24 | W.PN.CD ---
Today's Communication / Plan
-
can discharge on asa/plavix, PO lasix 80
Impression / Plan
-
Card: MD Enedina, PhD; PCP �Eva Rodríguez MD�
ACS with NSTEMI
- Trop peaked at 10
- s/p PCI to SVG-RCA with DESx3 09/20/2024, LVEDP 30 on cath
- chest pain resolved POD1
- cont. ASA/Plavix for at least 1 year
Acute on chronic HFpEF, now HFmrEF
- Echo with EF newly reduced to 45%
- EDP 30 in clinical lab technologist, PASP 90 on echo
- pBNP very elevated with normal Cr
- IV lasix 40, will discharge on 80 PO
- ZHENG improved today
- Advance GDMT over time => add MRA once renal function as outpatient
Known CAD, CABG 2007
BioAVR at time of CABG 2007
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
HTN
Mixed hyperlipidemia
Lymphedema
Subjective:
feeling well
Physical Exam
Vital Signs/Labs
Vital Signs
Temp Pulse Resp BP Pulse Ox
36.3 C 87 20 117/58 98
09/20/24 08:15 09/20/24 05:30 09/20/24 08:15 09/20/24 02:40 09/20/24 08:15
09/19/24 09/20/24 09/21/24
06:59 06:59 06:59
Actual Weight 87.5 kg 87 kg
09/20/24 03:06
09/20/24 03:06
PT 13.4 Sec (11.4-14.6) 09/18/24 14:03
INR 0.99 09/18/24 14:03
APTT Cancelled 09/20/24 06:00
Magnesium 2.0 mg/dl (1.6-2.3) 09/20/24 03:06
Triglycerides 59 mg/dl (10-149) 09/19/24 02:45
LDL Cholesterol, Calc 99 mg/dl 09/19/24 02:45
VLDL Cholesterol, Calc 11 mg/dl (0-30) 09/19/24 02:45
HDL Cholesterol 57 mg/dl 09/19/24 02:45
09/18/24
13:05
Bds-R-Cddozzqkrpi Pept 63674
LAB Results
09/18/24 09/18/24 09/18/24
13:05 20:30 23:36
Troponin I 8.570 H* 10.900 H* D 11.800 H*
09/19/24 09/19/24
00:05 02:45
Troponin I Cancelled 10.600 H*
Physical Exam
Constitutional: No acute distress
Cardiovascular: Rhythm & rate is regular
Respiratory: Respiratory effort normal
Neuro/Psych: AO x 3
Data Reviewed
-
Date of Service: September 20, 2024
Medical Decision Making: Reviewed Test Results
EKG: Tracing Personally Visualized and interpreted
Echo: Tracing Personally Visualized and interpreted
X-Ray/CT/US/MRI/NUC/PET: Image Personally Visualized and interpreted
Labs: Labs Reviewed by me
[2024-09-20 11:50] VITALS: BP 107/48
--- NOTE | 2024-09-20 12:11 | CM ---
Chart reviewed. Patient is independent of ADLS, lives [place] at [facility] at [place] with his , [address], 1 JO[address], ambulates with a RW. Patient is interested in VN. Referral sent to [facility]. Plan is for the patient to return home with [facility]
[2024-09-20] MEDS: COLACE PO (12:24)
--- NOTE | 2024-09-20 13:15 | W.DCSUMMARY ---
Discharge Summary
Discharge Data
Date of Admission: 09/18/24
Date of Discharge: 09/20/24
-
Pending Results: No
Discharge Plan
-
Patient Disposition: Home with Home Care
Discharge Diagnosis/Procedures: Acute Coronary Syndrome with NSTEMI
status post angioplasty and stent x3 to vein graft-Right Coronary artery
Hypertension
Acute on Chronic Heart Failure with mid-range Ejection Fraction
Hypothyroidism
Condition: Fair
Diet: Low Cholesterol and 2 Gram Sodium
Activity: As tolerated
Driving Restrictions: No driving for 24 hours
Bathing Restrictions: None
Blood Work: Repeat BMP with primary care provider 1 week of discharge
Others Tests: Repeat Chest X-ray with primary care provider in 1 month of discharge to follow up small probably loculated right pleural effusion versus pleural thickening noted on Chest X-ray here.
Other Services: Cardiac Rehab
Specialty Instructions: Weigh Daily- Call MD for wt gain/loss 3 lbs overnight/5 lbs in 1 week
Activity Restrictions/Additional Instructions:
Follow up with primary care provider in 1 week of discharge and keep your appointments with Cardiology.
Aspirin Plavix have been prescribed for recent cardiac stents placed. It is recommended that you continue with these medications for at least one year. Follow up with cardio or primary care provider for refills.
Atorvastatin has been prescribed to further reduce your risk for acute coronary syndrome.
Lasix has been increased to 80 mg daily for better treatment Heart Failure.
Please take medications as prescribed/recommended and follow up with primary care provider and/or other healthcare provider involved in your care for refills and/or further adjustment to your medication regimen as necessary.
Instructions: *CBC Heart Failure Instructions
Stand Alone Forms: DC Instructions- Cath/EP Lab
Referrals:
[facility] [Outside]
Mika Mcconnell MD [Family Provider] - 11/17/24 2:40 pm (Scheduled cardiology followup)
Eva Rodríguez MD [Non-Admitting Privileges] - in one week
Clara Garcia CRNP [Specified Professional Personl] - 10/07/24 3:40 pm (Post hospital cardiology followup appointment)
Prescriptions:
New
atorvastatin 40 mg Tablet
40 mg PO QPM Qty: 90 0RF
clopidogrel 75 mg Tablet
75 mg PO DAILY Qty: 90 0RF
aspirin 81 mg Tablet,Chewable
81 mg PO DAILY Qty: 90 0RF
furosemide [Lasix] 80 mg tablet
80 mg PO DAILY Qty: 90 0RF
Continued
sennosides [Senokot] 8.6 mg Tablet
8.6 mg PO DAILY
carvedilol 6.25 mg Tablet
6.25 mg PO BID
levothyroxine 88 mcg Tablet
88 mcg PO DAILY
alprazolam [Xanax] 0.5 mg Tablet
0.5 mg PO HS
docusate sodium [Colace] 100 mg Capsule
100 mg PO BID
dapagliflozin propanediol [Farxiga] 10 mg Tablet
10 mg PO DAILY
Entresto 24-26 mg Tablet
1 tab PO BID
Discontinued
furosemide [Lasix] 40 mg Tablet
40 mg PO DAILY
Discharge Orders:
Discharge Patient (As Directed); Ordered 09/20/24
Ordered By: Grayson Allen
Care Plan Goals
Care Plan Goals:
Problem: Readiness for enhanced knowledge related to diagnosis and treatment plan
Goal: Understand your diagnosis and treatment plan needs, including medications if applicable.
Instructions: Know your diagnosis, underlying causes and treatment plan options, including medications if applicable. Consult with your health care team to learn about your diagnosis and treatment plan, including medications if applicable.
Discharge Date and Time
Print Language: ARABIC
[2024-09-20 15:30] VITALS: BP 130/70
--- NOTE | 2024-09-20 15:57 | PTCARENOTE ---
Pt received this am with no c/o of any chest pain or sob. SR rate in the 70's to 80's. Assisted OOB to the BR and chair with one assist and the walker, gait steady. Left rad cath site dressing dry and intact with no hematoma or bleeding. Pt
discharged to home with his . Discharge instructions given and reviewed with pt and . All questions answered and pt verified understanding.
--- NOTE | 2024-09-21 10:38 | W.HF.CON ---
Heart Failure
- LV Function
Left ventricular function study result: LV Ejection fraction 41-49%
Ejection Fraction Percentage: 45
- ARNI
Patient already on ARNI: Yes
- ACEI/ARB
Patient already on ACEI/ARB: No
Heart Failure ACEI/ARB Not Indicated: Patient ordered/on ARNI
- Beta Kami
Patient already on Evidence Based Beta Kami: Yes
- Mineralocorticord Receptor Antagonist
Patient already on MRA: No
Heart Failure MRA Not Indicated: LV Ejection Fraction > 40%
- SGLT-2 Inhibitor
Patient already on SGLT-2 Inhibitor: Yes
- NYHA CHF Classification
NYHA CHF Classification Level: Class III - Symptoms w/ min exertion, interferes w/ nml daily activity
- ACC/AHA Stage
ACC/AHA Stage: Stage C: Symptomatic Heart Failure
== END 2024-09-20 15:42 | disposition home health service (06) | DRG 321 ==
LOC: IVU 15:10
PROVIDERS: Nurse Practitioner Family; Student in an Organized Health Care Education/Training Program; ADMITTING PHYSICIAN Internal Medicine; ATTENDING PHYSICIAN Internal Medicine; CONSULT PHYSICIAN Internal Medicine Cardiovascular Disease; EMERGENCY PHYSICIAN Emergency Medicine; FAMILY PHYSICIAN Internal Medicine
PROC: B2131ZZ Fluoroscopy of Multiple Coronary Artery Bypass Grafts using Low Osmolar Contrast (ICD-10-PCS; 2024-09-19)
PROC: 027036Z Dilation of Coronary Artery, One Artery with Three Drug-eluting Intraluminal Devices, Percutaneous Approach (ICD-10-PCS; 2024-09-19)
PROC: B2111ZZ Fluoroscopy of Multiple Coronary Arteries using Low Osmolar Contrast (ICD-10-PCS; 2024-09-19)
PROC: 4A023N7 Measurement of Cardiac Sampling and Pressure, Left Heart, Percutaneous Approach (ICD-10-PCS; 2024-09-19)
DX: I21.4 Non-ST elevation (NSTEMI) myocardial infarction (principal); I50.23 Acute on chronic systolic (congestive) heart failure; I25.810 Atherosclerosis of coronary artery bypass graft(s) without angina pectoris; F13.20 Sedative, hypnotic or anxiolytic dependence, uncomplicated; I11.0 Hypertensive heart disease with heart failure; E03.9 Hypothyroidism, unspecified; Z79.890 Hormone replacement therapy; E78.00 Pure hypercholesterolemia, unspecified; I34.2 Nonrheumatic mitral (valve) stenosis; I25.10 Atherosclerotic heart disease of native coronary artery without angina pectoris; F32.A Depression, unspecified; F41.9 Anxiety disorder, unspecified; Z85.828 Personal history of other malignant neoplasm of skin; I44.0 Atrioventricular block, first degree; Z79.899 Other long term (current) drug therapy; Z95.3 Presence of xenogenic heart valve
CPT/HCPCS: 71046; 80048; 80053; 80061; 83036; 83735; 83880; 84100; 84484; 85025; 85027; 85347; 85610; 85730; 93005; 93306; 93459; 96374; 96375; 97163; 99152; 99153; 99291; C1725; C1874; C1887; C1894; C9604; Q9967

== ENCOUNTER 2024-09-26 19:35 | Observation (INO) | payer MEDICARE, OTHER, SELFPAY ==
[2024-09-26] VITALS (8 sets, daily range): BP systolic 124–179; BP diastolic 58–80; BMI 30.8; BMI 28.7
[2024-09-26 15:45] LABS: % Basophils 0.8 % (0-2); % Eosinophils 7.6 % (0-6); % Immature Granulocytes 0.4 % (0-0.5); % Monocytes 13.9 % (1.7-9.3); % Neutrophils 68.3 % (42.2-75.2); Absolute Eosinophils 0.4 10^3/uL (0-0.7); Absolute Lymphocytes 0.5 10^3/uL (1.2-3.4); Absolute Monocytes 0.7 10^3/uL (0.1-0.6); Absolute Neutrophils 3.5 10^3/uL (1.4-6.5); Hemoglobin 12.9 g/dL (13.0-18.0); Mean Corp Hgb Conc. 34.9 g/dL (33.0-37.0); Mean Corpuscular Hgb 31.3 pg (27.0-31.0); Mean Corpuscular Volume 89.8 fL (80.0-94.0); Mean Platelet Volume 9.8 fL (7.4-10.4); Nucleated Red Blood Cells % 0 % (-); Platelet Count 215 10^3/uL (130-400); Red Blood Cell Count 4.12 10^6/uL (4.70-6.10); Red Cell Dist. Width 13.2 % (11.5-14.5); White Blood Cell Count 5.1 10^3/uL (4.8-10.8)
[2024-09-26 16:01] LABS: ALT (SGPT) 28 U/L (0-50); AST (SGOT) 38 U/L (17-59); Albumin 4.5 g/dl (3.5-5.0); Alkaline Phosphatase 80 U/L (38-126); Blood Urea Nitrogen 32 mg/dl (9-20); Calcium 10.2 mg/dl (8.4-10.2); Carbon Dioxide 26 mmol/L (22-30); Chloride 95 mmol/L (98-107); Glucose 115 mg/dl (70-99); Potassium 3.8 mmol/L (3.5-5.1); Sodium 133 mmol/L (135-145); Total Bilirubin 1.1 mg/dl (0.2-1.3); Total Protein 7.1 g/dl (6.3-8.2); eGFR 48.04
[2024-09-26 16:12] LABS: Troponin I 0.202 ng/ml
--- NOTE | 2024-09-26 17:40 | ED.GENMED ---
History of Present Illness
General
Chief Complaint: Chest Pain
Time Seen by Provider: 09/26/24 16:30
History of Present Illness
History of Present Illness:
Patient is a 89-year-old male with history of CAD, hypertension, CHF with recent admission for NSTEMI with angioplasty and stent x 3 presenting to the emergency department with chest pain. Patient states that he has developed midsternal chest pain
that is exertional since he had the stents placed. He was told that there was another suspicious artery if he were to still have chest pain. He also states that they increase his Lasix. He does have intermittent psqq-cka-qbeaavr. The shortness
of breath has improved. His weight is still downtrending. He denies any nausea or vomiting. No weakness. He is on 80 mg Lasix. He is compliant with his medications.
Past History
Past History
ED Past Medical History: CAD, HTN and Valvular disease
ED Past Surgical History: Cardiac (Prior to catheterization, coronary bypass, valve repair) and Other (Inguinal hernia)
Social History
Tobacco: Non-smoker
Alcohol: None
Drug: None
Personal:
Living: with family
Phy Exam
Physical Exam
Physical Exam:
GENERAL: in no acute distress
HEENT: normocephalic, extraocular movements intact, dry oral mucosa
NECK: normal inspection
RESPIRATORY: no respiratory distress, clear to auscultation bilaterally
CARDIOVASCULAR: regular rate and rhythm
ABDOMEN/: soft, non-distended, non-tender to palpation, no rebound or guarding
EXTREMITIES: non-tender, no edema/swelling
NEUROLOGIC: awake and alert, moves all extremities
SKIN: warm
Scores
Heart Score for Chest Pain Patients
STEMI patient?: Not applicable
Course
Orders/Labs/Results
Orders:
Orders
09/26/24 15:14
Electrocardiogram (*1) Urgent
Reason for Study: Chest Pain
EKG- Treatment ONCE
09/26/24 15:34
Complete Blood Count/With Diff Urgent
Comprehensive Metabolic Panel Urgent
NT-proBNP Urgent
Comment: ADD ON
Troponin I Urgent
09/26/24 16:34
Add On- LAB Urgent
Tests Added?: bnp
09/26/24 16:35
CR Chest - 2 Views Urgent
Comment:
Reason For Exam: chest pain
09/26/24 17:39
EKG- Treatment ONCE
09/26/24 18:23
Troponin I Urgent
09/26/24 18:30
Electrocardiogram (*1) Urgent
Reason for Study: Chest Pain
09/26/24 18:54
Admit/Transfer Patient As Directed
Co-Sign Provider:
Level of Care: Observation services
Assign to:: Telemetry
Physician / Group: Yevgeniy Camacho
Diagnosis: chest pain, acute kidney injury
Reason for Telemetry: Chest Pain syndromes
Date to Stop Telemetry: 09/28/24
Time to Stop Telemetry: 11:00
PRN Pain Medication Management As Directed
May give lesser potent ordered pain med per pt: Yes
preference::
Protocol:: Medication orders for pain may be administered in a
manner that supports deferring to patient preference
when the pt is:
- Requesting an ordered lesser potent pain medication.
Least to most potent pain medications are defined
as: acetaminophen < NSAID < tramadol < opioids
(morphine, oxycodone, hydromorphone).
- Requesting a lesser dose of the same medication IF
ORDERED.
- Requesting a less intrusive route of administration
if both routes are prescribed by the provider (PO <
IV).
09/26/24 18:56
Code Status As Directed
Resuscitation Status: Full Code
09/28/24 11:00
DC Protocol for Telemetry ONCE
Abnormal Lab Results
09/26/24 09/26/24
15:34 18:23
RBC 4.12 L 10^6/uL
(4.70-6.10)
Hgb 12.9 L g/dL
(13.0-18.0)
Hct 37.0 L %
(39.0-52.0)
MCH 31.3 H pg
(27.0-31.0)
Absolute Lymphs (auto) 0.5 L 10^3/uL
(1.2-3.4)
Absolute Monos (auto) 0.7 H 10^3/uL
(0.1-0.6)
Lymphocytes % 9.0 L %
(20.5-51.1)
Monocytes % 13.9 H %
(1.7-9.3)
Eosinophils % 7.6 H %
(0-6)
Sodium 133 L mmol/L
(135-145)
Chloride 95 L mmol/L
(98-107)
BUN 32 H mg/dl
(9-20)
Creatinine 1.4 H mg/dL
(0.7-1.3)
Glucose 115 H mg/dl
(70-99)
Troponin I 0.202 H* ng/ml 0.195 H* ng/ml
09/26/24 15:34
09/26/24 15:34
Vital Signs
Initial and Last Documented VS:
Initial Vital Signs
Temp Pulse Resp BP Pulse Ox
97.6 F 92 16 143/76 96
09/26/24 15:24 09/26/24 15:24 09/26/24 15:24 09/26/24 15:24 09/26/24 15:24
Last Documented Vital Signs
Temp Pulse Resp BP Pulse Ox
97.6 F 88 20 128/61 96
09/26/24 15:24 09/26/24 18:30 09/26/24 18:30 09/26/24 18:00 09/26/24 17:30
MDM/Problems Addressed
Differential Diagnosis Includes:
Patient is a 89-year-old man with recent admission for NSTEMI with stents, CHF exacerbation presenting to the emergency department with chest pain and intermittent aqfd-jdx-ueebglk. Vitals unremarkable exam does show dry oromucosa. Differential
consist of ACS versus overdiuresis or metabolic derangement. He is chest pain-free at the moment which is reassuring. Per cardiology catheterization report it does appear that they could consider PCI to the chipewwa OM 3 if patient has recurring
chest pain. Blood work was obtained prior to my evaluation. His troponin is elevated. Will obtain delta to see if it is downtrending from prior NSTEMI or if this is new. He does remain chest pain-free. we will hold off on heparin. Will obtain
chest x-ray. His creatinine is elevated at 1.4. He does have an YANNICK with a baseline of 0.9. Patient will need admission for further management. Discussed with cardiology who is in agreement with holding off heparin. Requesting notification if
troponin is up rising. Discussed with hospitalist who excepted patient to their service.
*Critical Care Note
Total Time (30-74mins, 75-104mins- exclusive of procedures): Not Applicable
ED Attending Note
-
Portions of this chart may have been created with voice recognition software.� Occasional wrong word or��sound alike� substitutions may have occurred due to the inherent limitations of voice recognition software.
Discharge Plan
Departure
Patient Disposition: Admit
Date of Disposition: 09/26/24
Time of Disposition: 17:48
Presentation/result/management discussed w/ accepting MD/DO: Hospitalist
Discharge Problem:
Chest pain, YANNICK (acute kidney injury)
Prescriptions:
No Action
sennosides [Senokot] 8.6 mg Tablet
17.2 mg PO DAILY
carvedilol 6.25 mg Tablet
6.25 mg PO BID
levothyroxine 88 mcg Tablet
88 mcg PO DAILY
alprazolam [Xanax] 0.5 mg Tablet
0.5 mg PO HSPRN PRN (Reason: sleep)
docusate sodium [Colace] 100 mg Capsule
100 mg PO BID
dapagliflozin propanediol [Farxiga] 10 mg Tablet
10 mg PO DAILY
Entresto 24-26 mg Tablet
1 tab PO BID
clopidogrel 75 mg Tablet
75 mg PO DAILY Qty: 90 0RF
aspirin 81 mg Tablet,Chewable
81 mg PO DAILY Qty: 90 0RF
furosemide [Lasix] 80 mg tablet
80 mg PO DAILY Qty: 90 0RF
polyethylene glycol 3350 [Miralax] 17 gram Powder In Packet
17 g PO DAILY
Theragen Tablet
1 tab PO DAILY
magnesium hydroxide [Milk of Magnesia] 400 mg/5 mL Suspension
400 mg PO DAILYPRN PRN (Reason: constipation)
ascorbic acid (vitamin C) [Vitamin C] 500 mg Tablet
500 mg PO DAILY
vitamin E 268 mg (400 unit) Capsule
268 mg PO DAILY
atorvastatin 40 mg tablet
40 mg PO MOWEFR
Referrals:
UNKNOWN - PT DOES,NOT KNOW [Family Provider] -
Interventions
Interventions:
*Risk Screen - Suicide Last Done: 09/26/24 15:24
*General Assessment Last Done: 09/26/24 15:24
*Neglect/Abuse Screening Last Done: 09/26/24 17:16
*ED COVID-19 Vaccine History Last Done: 09/26/24 15:24
ED- Cardiac Assessment Last Done: 09/26/24 17:16
Discharge Date and Time
Print Language: DANISH
[2024-09-26 17:41] LABS: NT-proBNP 7370 pg/ml
--- NOTE | 2024-09-26 18:26 | HPS.HSE ---
Addendum entered and electronically signed by Yevgeniy Camacho MD 09/27/24 07:54:
I saw and examined the patient.
The ELECTRONIC PREPRESS SYSTEM OPERATOR's note was reviewed and I agree with the note.
Pt was seen and examined on 09/26/24 PM. Please see update note.
89M HFpEF CABG bioAVR mild/mod MS Hypothyroidism p/w chest pain. Patient says the pain is 1 on a scale of 1-10. Stated pain lasted for couple of minutes only. Denies any lightheaded or dizziness. Per spouse at bedside patient has lost
approximately 20 pounds due to recent diuresis. Patient has been compliant with Lasix as outpatient. Denies drinking increasing amount of water. Denies increasing thirst. Currently patient states chest pain-free. Denies shortness of breath at
rest or exertion. Denies any lower extremity edema, PND orthopnea.
General: no acute distress. Appears comfortable at time of evaluation
HEENT: NormoCephalic, Moist mucous membranes, Atraumatic
Respiratory: Clear to auscultation b/l
Cardiac: S1/S2 and Regular Rhythm; No Murmur
GI: Soft, Non Tender, Non Distended and Normal Bowel Sounds
Musculoskeletal: No Clubbing, No Cyanosis, No Edema
Neuro: AOx3 conversant coherent
Psych: Calm and Intact Judgment/Insight
Impression/plan
#Chest pain rule out ACS
Continue trend troponin
Monitor on telemetry
Trops lower compared to recent admission
Chest x-ray negative for infiltrates or pulmonary edema
Continue with aspirin, Plavix, statin and beta-dominguez
Cardiology has been consulted
#Acute kidney injury likely secondary to prerenal versus overdiuresis
Check urine analysis with reflex to culture
Check urine lites
Bladder scan protocol
Hold Lasix and Entresto for now
#CAD status post CABG status post recent stents
Continue with aspirin, Plavix, statin and beta-dominguez
Cardiology has been consulted
#Primary hypertension
Well-controlled. Monitor for now.
#Chronic HFmrEF
Continue with aspirin, Plavix, statin, beta-dominguez
Continue with Jardiance
Hold Entresto and Lasix overnight
proBNP significantly lower compared to recent admission
#depression/anxiety
continue alprazolam
#hypothyrodism
continue levothyroxine
Nonrheumatic mitral valve stenosis
DVT ppx-hep sc
Full code
Comment:
Original Note:
Family Physician
-
Family Physician: NOT KNOW UNKNOWN - PT DOES
Chief Complaint
-
chest pain
History of Present Illness
Patient is a 89-year-old male with past medical history significant for essential hypertension, dyslipidemia, non-rheumatic mitral valve stenosis, CAD, HFpEF, hypothyroidism and depression/anxiety who presented to [facility] ED for evaluation of
exertional chest pain. Patient with recent hospitalization for NSTEMI with multiple stents discharged on 09/20/2024, notes from cardiology mention if continued chest pain consider PCI to [place] OM3. Patient reports exertional midsternal,
nonradiating chest pains and tingling in all extremities. Denies any palpitations, dizziness, shortness of breath or diaphoresis.
Medical History
Past Medical History
Past Medical History: Reports Other
Additional Past Medical History:
essential hypertension
dyslipidemia
non-rheumatic mitral valve stenosis
CAD
HFpEF
hypothyroidism
depression/anxiety
Past Surgical History: Reports Other
Additional Past Surgical History:
CABG
Cardiac cath
aortic valve replacement
Prostatectomy-Green light(2008)
Mohs Surgery for Skin Cancer(2009)
Social History
Tobacco: Non-smoker
Alcohol: Occasional
Drug: None
Personal:
Living: With Family ([facility]
Employment: Retired
Family History
Family History: Not pertinent
Allergies / Home Medications
Allergies reflects when Allergies were last updated in [facility].
Home Medications with original date entered in [facility]
Allergy/Medication List:
Allergies
Allergy/AdvReac Type Severity Reaction Status Date / Time
Quinolones Allergy Unknown Verified 09/26/24 15:26
Home Medications
alprazolam 0.5 mg tablet (Xanax) 0.5 mg PO HSPRN PRN sleep 09/18/24
carvedilol 6.25 mg tablet 6.25 mg PO BID Blood Pressure 09/18/24
dapagliflozin propanediol 10 mg tablet (Farxiga) 10 mg PO DAILY Diabetes 09/18/24
docusate sodium 100 mg capsule (Colace) 100 mg PO BID STOOL SOFTENER 09/18/24
levothyroxine 88 mcg tablet 88 mcg PO DAILY Thyroid 09/18/24
sacubitril 24 mg-valsartan 26 mg tablet (Entresto) 1 tab PO BID Heart Failure 09/18/24
sennosides 8.6 mg tablet (Senokot) 17.2 mg PO DAILY Constipation 09/18/24
aspirin 81 mg chewable tablet 81 mg PO DAILY #90 tabs 09/20/24
clopidogrel 75 mg tablet 75 mg PO DAILY #90 tabs 09/20/24
furosemide 80 mg tablet (Lasix) 80 mg PO DAILY #90 tabs 09/20/24
ascorbic acid (vitamin C) 500 mg tablet (Vitamin C) 500 mg PO DAILY 09/26/24
atorvastatin 40 mg tablet 40 mg PO MOWEFR 09/26/24
magnesium hydroxide 400 mg/5 mL oral suspension (Milk of Magnesia) 400 mg PO DAILYPRN PRN constipation 09/26/24
polyethylene glycol 3350 17 gram oral powder packet (Miralax) 17 g PO DAILY 09/26/24
therapeutic multivitamin 1 tab PO DAILY 09/26/24
vitamin E 268 mg (400 unit) capsule 268 mg PO DAILY 09/26/24
Review of Systems
-
History Source: Patient
Constitutional: Reports No Symptoms
EENT: Reports No Symptoms
Respiratory: Reports No Symptoms
Cardiac: Reports Chest Pain (exertional chest pains, denies any currently )
Abdomen/GI: Reports No Symptoms
: Reports No Symptoms
Musculoskeletal: Reports No Symptoms
Skin: Reports No Symptoms
Neurological: Reports No Symptoms
Endocrine: Reports No Symptoms
Hematologic/Lymphatic: Reports No Symptoms
Psych: Reports No Symptoms
Physical Exam
Vital Signs
Vital Signs
Temp Pulse Resp BP Pulse Ox
97.6 F 86 18 168/67 97
09/26/24 15:24 09/26/24 17:04 09/26/24 17:04 09/26/24 17:04 09/26/24 17:04
Physical Exam
General: Well Developed, Well Nourished, No Apparent Distress, Comfortable, Conversant and Morbidly Obese
HEENT: NormoCephalic, Moist mucous membranes, Atraumatic, Ola Conjunctivae, Nose Appears Normal and Ears Appear Normal
Respiratory: Clear and Non Labored Respirations
Cardiac: S1/S2 and Regular Rhythm
Breast: Deferred by me
GI: Soft, Non Tender, Non Distended and Normal Bowel Sounds; No Organomegaly
Rectal: Deferred by Provider
Genito-urinary: Deferred by me
Musculoskeletal: No Clubbing, No Cyanosis, Edema, Left Lower Extremity and Edema, Right Lower Extremity
Skin: IV/Catheter Site
Neuro: Awake, Alert, AO x 3 and Nonfocal/grossly intact
Psych: Calm and Intact Judgment/Insight
Laboratory Results
-
09/26/24 15:34
09/26/24 15:34
Laboratory Results
Total Bilirubin 1.1 mg/dl (0.2-1.3) 09/26/24 15:34
AST 38 U/L (17-59) 09/26/24 15:34
ALT 28 U/L (0-50) 09/26/24 15:34
Alkaline Phosphatase 80 U/L (38-126) 09/26/24 15:34
Troponin I 0.202 ng/ml H* 09/26/24 15:34
Data Reviewed
-
Diagnostic Radiology: Report Reviewed by me (CXR: Mild cardiomegaly.)
Medical Tests (Nuc Med, Echo, EKG etc): Report Reviewed by me (EKG: SINUS RHYTHM WITH 1ST DEGREE A-V BLOCK LEFT AXIS DEVIATION LEFT VENTRICULAR HYPERTROPHY WITH QRS WIDENING AND REPOLARIZATION ABNORMALITY ( R in aVL , [place] product ,
Romhilt-Pulliam ))
Lab Data: Labs Reviewed by me (BUN 32, Creat 1.4, Trop 0.202, BNP 7370)
Impression/Plan
-
IMPRESSION/PLAN:
#chest pain
Trop 0.202
EKG: SINUS RHYTHM WITH 1ST DEGREE A-V BLOCK
LEFT AXIS DEVIATION
LEFT VENTRICULAR HYPERTROPHY WITH QRS WIDENING AND REPOLARIZATION ABNORMALITY
( R in aVL , [place] product , Romhilt-Pulliam )
- Admit to telemetry
- Consult cardiology
- trend troponin
#acute kidney injury
BUN 32, Creat 1.4
- NSS 75cc/hr for 500cc
- UA C&S
- Urine sodium
- Urine creatine
- bladder scan protocol
- monitor BMP
#HFpEF, acute on chronic
BNP 7370
ECHO (09/19/2024): Mildly reduced left ventricular systolic function. Left ventricular ejection fraction is 45%.
Mild/moderate mitral stenosis. Mean gradient is 6mmHg.
Moderate mitral regurgitation.
s/p bioprosthetic aortic valve. Peak/mean gradients are 11/6mmHg. Moderate eccentric aortic regurgitation.
Mild tricuspid regurgitation. Severely elevated PASP. Estimated pulmonary artery pressure of 90 mmHg. Assuming a right atrial pressure of 15 mmHg.
- continue carvedilol, Farxiga, furosemide and Entresto
- daily weights
#essential hypertension
- continue carvedilol and Entresto
#hyperlipidemia
#CAD
s/p CABG
s/p PCI 09/19/2024
- continue aspirin, atorvastatin and clopidogrel
#hypothyroidism
- continue levothyroxine
#depression/anxiety
- continue alprazolam PRN
Code status: full code
DVT prophylaxis: SCDs
--- NOTE | 2024-09-26 18:49 | W.PN.UPDATE ---
Update Note
Progress Note Update
I saw and examined the patient.
The STOCKING INSPECTOR's note was reviewed and I agree with the note.
Comment:
89M HFpEF CABG bioAVR mild/mod MS Hypothyroidism p/w chest pain. Patient says the pain is 1 on a scale of 1-10. Stated pain lasted for couple of minutes only. Denies any lightheaded or dizziness. Per spouse at bedside patient has lost
approximately 20 pounds due to recent diuresis. Patient has been compliant with Lasix as outpatient. Denies drinking increasing amount of water. Denies increasing thirst. Currently patient states chest pain-free. Denies shortness of breath at
rest or exertion. Denies any lower extremity edema, PND orthopnea.
General: no acute distress. Appears comfortable at time of evaluation
HEENT: NormoCephalic, Moist mucous membranes, Atraumatic
Respiratory: Clear to auscultation b/l
Cardiac: S1/S2 and Regular Rhythm; No Murmur
GI: Soft, Non Tender, Non Distended and Normal Bowel Sounds
Musculoskeletal: No Clubbing, No Cyanosis, No Edema
Neuro: AOx3 conversant coherent
Psych: Calm and Intact Judgment/Insight
Impression/plan
#Chest pain rule out ACS
Continue trend troponin
Monitor on telemetry
Trops lower compared to recent admission
Chest x-ray negative for infiltrates or pulmonary edema
Continue with aspirin, Plavix, statin and beta-dominguez
Cardiology has been consulted
#Acute kidney injury likely secondary to prerenal versus overdiuresis
Check urine analysis with reflex to culture
Check urine lites
Bladder scan protocol
Hold Lasix and Entresto for now
#CAD status post CABG status post recent stents
Continue with aspirin, Plavix, statin and beta-dominguez
Cardiology has been consulted
#Primary hypertension
Well-controlled. Monitor for now.
#Chronic HFmrEF
Continue with aspirin, Plavix, statin, beta-dominguez
Continue with Jardiance
Hold Entresto and Lasix overnight
proBNP significantly lower compared to recent admission
#depression/anxiety
continue alprazolam
#hypothyrodism
continue levothyroxine
Nonrheumatic mitral valve stenosis
DVT ppx-hep sc
Full code
Discussed with spouse at bedside in details
I spent a total of 80 minutes with the patient or on the floor. More than 50% of this time involved counseling and coordination of care.
[2024-09-26 18:57] LABS: Troponin I 0.195 ng/ml
[2024-09-26] MEDS: COREG 6.25 MG PO (22:23)
[2024-09-26] MEDS: COLACE 100 MG PO (22:24)
[2024-09-26] MEDS: LIPITOR 40 MG PO (22:24)
[2024-09-26] MEDS: ENTRESTO 24 MG/26 MG 1 TAB PO (22:24)
[2024-09-26] MEDS: NSS 500 IV (22:49)
[2024-09-27] VITALS (7 sets, daily range): BP systolic 144–184; BP diastolic 62–92; O2SAT 97; BMI 29.9
[2024-09-27 04:52] LABS: Urine Albumin 1+ (Neg - Trace); Urine Bilirubin Negative (Negative); Urine Character Clear (Clear); Urine Color Yellow; Urine Glucose 4+ (Negative); Urine Ketone Negative (Negative); Urine Leukocyte Negative (Negative); Urine Nitrite Negative (Negative); Urine Occult Blood Negative (Negative); Urine Specific Gravity 1.015 (<1.030); Urine Urobilinogen Negative (Neg - 1+)
[2024-09-27 05:35] LABS: Osmolality Urine 374 mOsm/kg (300-900)
[2024-09-27 05:42] LABS: Urine Sodium 49 mmol/L (30-90)
[2024-09-27 05:49] LABS: Urine Bacteria Few (Negative); Urine Hyaline Cast 0-2 /LPF (0-2); Urine Red Blood Cell 0-2 /HPF (0-2); Urine White Cell 0-2 /HPF (0-5)
[2024-09-27] MEDS: SYNTHROID 88 MCG PO (06:07)
[2024-09-27 06:41] LABS: Blood Urea Nitrogen 27 mg/dl (9-20); Calcium 9.7 mg/dl (8.4-10.2); Carbon Dioxide 24 mmol/L (22-30); Chloride 101 mmol/L (98-107); Estimated Creatinine Clearance 41 ml/min; Glucose 89 mg/dl (70-99); Potassium 3.7 mmol/L (3.5-5.1); Sodium 136 mmol/L (135-145); eGFR > 60.00
[2024-09-27 06:52] LABS: Troponin I 0.186 ng/ml
[2024-09-27] MEDS: COLACE PO (08:51)
[2024-09-27] MEDS: VITAMIN C 500 MG PO (09:09)
[2024-09-27] MEDS: THERAGRAN 1 TABLET PO (09:09)
[2024-09-27] MEDS: VITAMIN E 400 UNITS PO (09:09)
[2024-09-27] MEDS: COREG 6.25 MG PO (09:09)
[2024-09-27] MEDS: MIRALAX 17 GRAMS PO (09:09)
[2024-09-27] MEDS: ENTRESTO 24 MG/26 MG 1 TAB PO (09:09)
[2024-09-27] MEDS: FARXIGA 10 MG PO (09:09)
[2024-09-27] MEDS: LOW STRENGTH ASPIRIN 81 MG PO (09:09)
[2024-09-27] MEDS: PLAVIX 75 MG PO (09:09)
--- NOTE | 2024-09-27 09:43 | CON.CAR ---
Addendum entered and electronically signed by Salbador Palafox MD 09/27/24 12:45:
I saw and examined the patient.
The COD CLERK's note was reviewed and I agree with the note.
Comment: 89-year-old male (known to Dr. Mcconnell, his primary microbiology director), with CAD (CABG 2007), bio AVR (2007), hypertension, dyslipidemia, lymphedema, LAFB/first-degree AV block, and recent admission with NSTEMI (discharge/07/16) status post PCI to
SVG�RCA with KISHORE x 3 and diagnosed with HFmrEF. Presenting for evaluation of severe constipation and chest pain. He reports due to the severe constipation, he was exerting himself and with this had 1 out of 10 chest pain. Initial creatinine on
arrival was 1.4. Troponin was 0.2, of note recent NSTEMI with a peak of 11.8. Currently, he is feeling well. He has no further chest pain. Notable labs are troponin that stated, proBNP has decreased markedly from 20,000 on the prior to 7370.
Creatinine has improved from 1.4 on arrival to 1.1. On exam he is in no apparent distress has a regular rate and rhythm with a normal S1-S2 no murmurs rubs or appreciated lungs are clear to auscultation bilaterally he is alert and oriented x 3.I do
not suspect any acute cardiac abnormality. I do think he may have been slightly overdiuresed on arrival which is not helping his constipation. Will back off his furosemide dosing in the setting of recent start of SGLT2 inhibitor. Additionally,
blood pressure is slightly elevated and given recent NSTEMI, recommended increasing his Coreg. He refuses the increase and would like to monitor at home. Otherwise he should continue on his DAPT for his recent PCI and in the setting of non-STEMI.
Follow-up as already been arranged at prior visit. No contraindication to discharge from a cardiac perspective. I will sign off.
Original Note:
Consultation
Consultation Request
Date/Time Consultation Requested: 09/26/2024 20:30
Date/Time Consultation Performed: 09/26/2024 09:45
Requesting Provider: GELY Ca
Performing Provider: GELY Echavarria for Dr. Palafox
Reason for Consultation: Chest pain
Medical History
-
Chief Complaint: Chest pain
History of Present Illness:
Carlos Mujica is an 89-year-old male (known to Dr. Mcconnell, his primary microbiology director), with CAD (CABG 2007), bio AVR (2007), hypertension, dyslipidemia, lymphedema, LAFB/first-degree AV block, and recent admission with NSTEMI (discharge) status
post PCI to SVG�RCA with KISHORE x 3 and diagnosed with HFmrEF. Presented to the emergency department yesterday evening with a chief complaint of chest pain. His chest pain was 1/10 in severity. It occurred while he was trying to have a bowel movement.
He has been constipated for the past few days. During his last hospitalization he was found to have a newly reduced ejection fraction of 45% with an LVEDP of 30 in the Information Clerk. He was discharged on furosemide 80 mg daily. The plan was to advance
GDMT over time. He presented with an YANNICK, creatinine 1.4, now at his baseline. His peak troponin last admission was 11.800. His troponin has been flat (0.202, 0.195, 0.200, 0.186). His proBNP during his last admission was nearly 20,000, now
7370.
Past Medical History
Past Medical History: Arrhythmias (First-degree AV block), CAD (CABG 2007), CHF (HFmrEF), HTN, Hypercholesterolemia, Hypothyroidism and Valvular Disease (Bio AVR 2007)
Past Surgical History: Cardiac (CABG/bio AVR [2007]) and Urological
Social History
Tobacco: Non-Smoker
Drug: None
Employment: Retired
Family History
Family History: Reviewed & Not Pertinent
Allergies / Home Medications
Allergy/AdvReac Type Severity Reaction Status Date / Time
Quinolones Allergy Unknown Verified 09/26/24 15:26
�Medication �Instructions �Recorded �Confirmed �Type
alprazolam 0.5 mg tablet (Xanax) 0.5 mg PO HSPRN PRN sleep 09/18/24 09/26/24 History
carvedilol 6.25 mg tablet 6.25 mg PO BID Blood Pressure 09/18/24 09/26/24 History
dapagliflozin propanediol 10 mg 10 mg PO DAILY Diabetes 09/18/24 09/26/24 History
tablet (Farxiga)
docusate sodium 100 mg capsule 100 mg PO BID STOOL SOFTENER 09/18/24 09/26/24 History
(Colace)
levothyroxine 88 mcg tablet 88 mcg PO DAILY Thyroid 09/18/24 09/26/24 History
sacubitril 24 mg-valsartan 26 mg 1 tab PO BID Heart Failure 09/18/24 09/26/24 History
tablet (Entresto)
sennosides 8.6 mg tablet (Senokot) 17.2 mg PO DAILY Constipation 09/18/24 09/26/24 History
aspirin 81 mg chewable tablet 81 mg PO DAILY #90 tabs 09/20/24 09/26/24 Rx
clopidogrel 75 mg tablet 75 mg PO DAILY #90 tabs 09/20/24 09/26/24 Rx
furosemide 80 mg tablet (Lasix) 80 mg PO DAILY #90 tabs 09/20/24 09/26/24 Rx
ascorbic acid (vitamin C) 500 mg 500 mg PO DAILY 09/26/24 09/26/24 History
tablet (Vitamin C)
atorvastatin 40 mg tablet 40 mg PO MOWEFR 09/26/24 09/26/24 History
magnesium hydroxide 400 mg/5 mL 400 mg PO DAILYPRN PRN constipation 09/26/24 09/26/24 History
oral suspension (Milk of Magnesia)
polyethylene glycol 3350 17 gram 17 g PO DAILY 09/26/24 09/26/24 History
oral powder packet (Miralax)
therapeutic multivitamin 1 tab PO DAILY 09/26/24 09/26/24 History
vitamin E 268 mg (400 unit) capsule 268 mg PO DAILY 09/26/24 09/26/24 History
Review of Systems
-
History Source: Patient
All other systems: Negative unless noted
Constitutional: No Symptoms
EENT: No Symptoms
Respiratory: No Symptoms
Cardiac: No Symptoms
Abdomen/GI: No Symptoms
: No Symptoms
Musculoskeletal: No Symptoms
Skin: No Symptoms
Neurological: No Symptoms
Endocrine: No Symptoms
Hematologic/Lymphatic: No Symptoms
Physical Exam
Vital Signs
Temp Pulse Resp BP Pulse Ox
98.3 F 84 18 155/83 97
09/27/24 07:57 09/27/24 07:57 09/27/24 07:57 09/27/24 07:57 09/27/24 07:57
Lab Results
09/26/24 15:34
09/27/24 05:38
Troponin I 0.186 ng/ml H* 09/27/24 05:38
Gtf-S-Wbieaszgggp Pept 7370 pg/ml 09/26/24 15:34
Physical Exam
General: Well Developed, Well Nourished, No Apparent Distress and Comfortable
HEENT: Normocephalic, Anicteric, Moist Mucous Membranes and Other (hard of hearing)
Respiratory: Clear and Non Labored Respirations
Cardiac: S1/S2, Regular Rhythm and Murmur
Breast: Deferred by me
GI: Soft, Non Tender, Non Distended and Normal Bowel Sounds
Rectal: Deferred by Provider
Musculoskeletal: No Clubbing and No Cyanosis
Skin: Warm and Dry
Neuro: AO x 3
Hematologic/Lymphatic: No Lymphadenopathy
Psych: Calm
Impression / Plan
-
I/P: 89M with CAD (CABG 2007), bio AVR (2007), hypertension, dyslipidemia, lymphedema, LAFB/first-degree AV block, and recent admission with NSTEMI () status post PCI to SVG�RCA with KISHORE x 3 and diagnosed with HFmrEF. Presented to the
emergency department yesterday evening with a chief complaint of chest pain.
Outpatient microbiology director: Dr. Mcconnell
Chest pain
-Occurred after straining for a bowel movement
-No further CP
-EKG stable
HFmrEF (EF 45%), chronic
-Presented with YANNICK reduce furosemide to 80mg MWF and 40mg on alternate days
-GDMT as tolerated:
-STACIE/ARB/ARNI: Entresto
-SGLT2 inhibitor: Farxiga 10mg
-Aldosterone agonist: Can consider in the outpatient setting
-Beta dominguez: carvedilol 6.25mg BID
-ICD: Not indicated
-Continue daily weight & sodium restriction at home
CAD
-CABG 2007 (patent ROWE-LAD, occluded SVG-OM) & PCI to 99% stenosed SVG-RCA with DESx3 09/20/[address] Hall
-Continue DAPT for 12 months followed by ASA indefinitely
Abnormal troponin, non ischemic myocardial injury in the setting of recent NSTEMI & cardiac intervention
-Peak troponin last admission 11, now trending down
YANNICK, resolved, decrease diuretic as above
BioAVR (at time of CABG), 2007
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
HTN
Mixed hyperlipidemia
Lymphedema
Data Reviewed
-
EKG: Report Reviewed by me (Sinus rhythm, first degree AV block)
Medical Tests (Nuc Med, Echo etc): Report Reviewed by me (TTE and cardiac cath as above)
Labs: Labs Reviewed by me
Old Records: Reviewed
--- NOTE | 2024-09-27 11:26 | W.PN.HOSP.TC ---
Addendum entered and electronically signed by Yevgeniy Camacho MD 09/28/24 09:07:
More than 30 minutes spent in discharge including
Final examination of the patient
Summarizing hospital stay
Instructions for continuing care to all relevant caregivers
Preparation of discharge records, prescriptions, and referral forms
Total time spent (in minutes): 45
Original Note:
Today's Communication/Plan
-
Cards input
PT eval
Assessment / Plan
Assessment / Plan
General: no acute distress. Appears comfortable at time of evaluation
HEENT: NormoCephalic, Moist mucous membranes, Atraumatic
Respiratory: Clear to auscultation b/l
Cardiac: S1/S2 and Regular Rhythm; No Murmur
GI: Soft, Non Tender, Non Distended and Normal Bowel Sounds
Musculoskeletal: No Clubbing, No Cyanosis, No Edema
Neuro: AOx3 conversant coherent
Psych: Calm and Intact Judgment/Insight
Impression/plan
#Chest pain
Trop downtrended
Monitor on telemetry
Trops lower compared to recent admission
Chest x-ray negative for infiltrates or pulmonary edema
Continue with aspirin, Plavix, statin and beta-dominguez
Cardiology has been consulted
#Acute kidney injury likely secondary to prerenal versus overdiuresis
Bladder scan protocol
s/p [id number]. Cr back to baseline
#CAD status post CABG status post recent stents
Continue with aspirin, Plavix, statin and beta-dominguez
Cardiology has been consulted
#Primary hypertension
Well-controlled. Monitor for now.
#Chronic HFmrEF
Continue with aspirin, Plavix, statin, beta-dominguez
Continue with Jardiance
Cont entresto. Diuretics may need to be adjusted. Await cards input
proBNP significantly lower compared to recent admission
#depression/anxiety
continue alprazolam
#hypothyrodism
continue levothyroxine
Nonrheumatic mitral valve stenosis
Mild hyponatremia
-resolved
DVT ppx-hep sc
Full code
PT eval
Anticipated Discharge: Within 24 hours
Subjective/Interval History
-
Date of Service: September 27, 2024
denies chest pain this morning
Objective Data
-
Labs:
Laboratory Results
09/27/24
05:38
Sodium 136
Potassium 3.7
Chloride 101
Carbon Dioxide 24
BUN 27 H
Creatinine 1.1
Glucose 89
Calcium 9.7
Vital Signs:
Vital Signs
Temp Pulse Resp BP Pulse Ox
98.3 F 84 18 155/83 97
09/27/24 07:57 09/27/24 07:57 09/27/24 07:57 09/27/24 07:57 09/27/24 07:57
I&O
09/26/24 09/27/24 09/28/24
06:59 06:59 06:59
Intake Total 150 / 150
Balance 150 / 150
--- NOTE | 2024-09-27 15:16 | W.DCSUMMARY ---
Discharge Summary
Discharge Data
Date of Admission: 09/26/24
Date of Discharge: 09/27/24
-
Pending Results: No
Hospital Course
Primary Dx
Chest pain
YANNICK likely 2/2 over diuresis
Secondary Dx
essential hypertension
dyslipidemia
non-rheumatic mitral valve stenosis
CAD s/p CABG s/p stents
Recent NSTEMI
HFpEF
hypothyroidism
depression/anxiety
89-year-old male with extensive cardiac history is presenting from home with complaints of chest pain which lasted for few minutes only. Upon arrival to the hospital patient was chest pain-free. Per spouse at bedside patient has lost approximately
20 pounds since being started on diuresis. Patient was recently admitted for NSTEMI. Patient was eval by cardiology. Patient had elevated creatinine level. Patient received 500 cc of normal saline. Overnight patient creatinine down trended to
baseline. Patient chest pain resolved. Cardiology evaluated patient and adjusted diuretic regimen to 80 mg / 40 mg throughout the week. Patient without any chest pain. Patient was eval by physical therapy and patient was at baseline status.
Patient was eager to get discharged. Discussed case with cardiology and okay for discharge home with outpatient cardiology follow-up.
Discharge Plan
-
Patient Disposition: Home with Home Care
Discharge Diagnosis/Procedures: Chest pain
Acute kidney injury secondary to overdiuresis
Dehydration
Condition: Fair
Diet: Low Cholesterol and 2 Gram Sodium
Activity: No strenuous activity
Driving Restrictions: As prior to admission
Bathing Restrictions: None
Blood Work: bmp in 1 week via primary doctor
Specialty Instructions: Weigh Daily- Call MD for wt gain/loss 3 lbs overnight/5 lbs in 1 week
Referrals:
UNKNOWN - PT DOES,NOT KNOW [Family Provider] -
Additional Discharge Medication Instructions: Furosemide regimen has been switched to 40 mg on Thursday, , Thursday and Thursday and 80 mg on Thursday, Thursday and Thursday
Prescriptions:
New
furosemide 40 mg Tablet
40 mg PO SUTUTHSA Qty: 30 0RF
furosemide 80 mg Tablet
80 mg PO MOWEFR Qty: 30 0RF
Continued
sennosides [Senokot] 8.6 mg Tablet
17.2 mg PO DAILY
carvedilol 6.25 mg Tablet
6.25 mg PO BID
levothyroxine 88 mcg Tablet
88 mcg PO DAILY
alprazolam [Xanax] 0.5 mg Tablet
0.5 mg PO HSPRN PRN (Reason: sleep)
docusate sodium [Colace] 100 mg Capsule
100 mg PO BID
dapagliflozin propanediol [Farxiga] 10 mg Tablet
10 mg PO DAILY
Entresto 24-26 mg Tablet
1 tab PO BID
clopidogrel 75 mg Tablet
75 mg PO DAILY Qty: 90 0RF
aspirin 81 mg Tablet,Chewable
81 mg PO DAILY Qty: 90 0RF
polyethylene glycol 3350 [Miralax] 17 gram Powder In Packet
17 g PO DAILY
therapeutic multivitamin Tablet
1 tab PO DAILY
magnesium hydroxide [Milk of Magnesia] 400 mg/5 mL Suspension
400 mg PO DAILYPRN PRN (Reason: constipation)
ascorbic acid (vitamin C) [Vitamin C] 500 mg Tablet
500 mg PO DAILY
vitamin E 268 mg (400 unit) Capsule
268 mg PO DAILY
atorvastatin 40 mg tablet
40 mg PO MOWEFR
Discontinued
furosemide [Lasix] 80 mg tablet
80 mg PO DAILY Qty: 90 0RF
Discharge Orders:
Discharge Patient (As Directed); Ordered 09/27/24
Ordered By: Yevgeniy Camacho
Discharge Date and Time
Discharge Date/Time: 09/27/24 17:50
Print Language: UPPER SORBIAN
--- NOTE | 2024-09-27 16:08 | CM ---
Alert awake oriented patient who lives with his Sue at independent living at [facility].He is independent in all activities of daily living.He was offered VN he declined need.He said he had PT 3x a week set up at [facility] . PT OT saw him
and said he was close to baseline. Spoke with Sue she said she is on her way to pick him up.[employer] letter explained to patient he said he does not have copays. He declined to sign [employer] letter .Pt uses walker at home.
No VN hx / No SNF history
Pharmacy [facility]
PCP DR Mathew
PLAN Home Declined VN
== END 2024-09-27 17:50 | disposition home or self-care (01) ==
LOC: 4 EAST ACU 19:35
PROVIDERS: Nurse Practitioner Family; Student in an Organized Health Care Education/Training Program; ADMITTING PHYSICIAN Hospitalist; EMERGENCY PHYSICIAN Student in an Organized Health Care Education/Training Program; OTHER PHYSICIAN Internal Medicine Cardiovascular Disease
DX: R07.9 Chest pain, unspecified (principal); N17.9 Acute kidney failure, unspecified; I25.810 Atherosclerosis of coronary artery bypass graft(s) without angina pectoris; I25.10 Atherosclerotic heart disease of native coronary artery without angina pectoris; I11.0 Hypertensive heart disease with heart failure; Z79.82 Long term (current) use of aspirin; F41.9 Anxiety disorder, unspecified; F32.A Depression, unspecified; I08.3 Combined rheumatic disorders of mitral, aortic and tricuspid valves; I34.2 Nonrheumatic mitral (valve) stenosis; E03.9 Hypothyroidism, unspecified; E87.1 Hypo-osmolality and hyponatremia; Z79.02 Long term (current) use of antithrombotics/antiplatelets; Z79.899 Other long term (current) drug therapy
CPT/HCPCS: 71046; 80048; 80053; 81003; 81015; 82570; 83880; 83935; 84300; 84484; 85025; 93005; 97163; 97166; 99285; G0378